=== PATIENT | male | born 1970 | race Caucasian/White ===

== ENCOUNTER 2023-11-23 15:45 | Inpatient (IN) | payer OTHER, MEDICAID ==
[~2023-11-23] VITALS: Ht 170.2 cm; Wt 89.2 kg
[2023-11-23] MEDS ORDERED: CARI350T PO (16:47)
[2023-11-23] MEDS ORDERED: CLOP75TA34 PO (16:47)
[2023-11-23 17:22] LABS: BASOPHILS % (AUTO) 0.3 % (0-1); EOSINOPHILS % (AUTO) 0.6 % (0-6); HEMOGLOBIN 15.4 g/dl (14.0-17.9); LYMPHOCYTES # (AUTO) 0.7 X10'3 (1.1-4.8); LYMPHOCYTES % (AUTO) 21.6 % (21-51); MEAN CORPUSCULAR HEMOGLOBIN 31.8 PG (27.0-31.0); MEAN CORPUSCULAR HGB CONC 32.7 g/dL (33.0-36.5); MEAN CORPUSCULAR VOLUME 97.1 FL (78-98); MEAN PLATELET VOLUME 7.6 FL (7.4-10.4); MONOCYTES # (AUTO) 0.3 X10'3 (0-0.9); MONOCYTES % (AUTO) 9.3 % (2-12); NEUTROPHILS # (AUTO) 2.3 X10'3 (1.8-7.7); NEUTROPHILS % (AUTO) 68.2 % (42-75); PLATELET COUNT 94 X10'3 (140-440); RED BLOOD COUNT 4.84 X10'6 (4.70-6.10); RED CELL DISTRIBUTION WIDTH 18.2 % (11.5-14.5); WHITE BLOOD COUNT 3.4 X10'3 (4.5-11.0)
[2023-11-23 17:36] LABS: ALBUMIN 3.9 G/DL (3.4-5.0); ANION GAP 11 (8-16); BLOOD UREA NITROGEN 21 MG/DL (7-18); BUN/CREATININE RATIO 20.8 (10.0-20.0); CALCIUM 9.1 MG/DL (8.5-10.1); CHLORIDE 107 MMOL/L (99-107); CREATININE 1.01 MG/DL (0.60-1.10); GLUCOSE 84 MG/DL (70-104); POTASSIUM 3.8 MMOL/L (3.5-5.1); SODIUM 141 MMOL/L (135-145); VALPROATE 110 UG/ML (50-100); eCRCL 80 ML/MIN; eGFR 78 ML/MIN
[2023-11-23 17:47] LABS: URINE AMPHETAMINE SCREEN NEGATIVE (Neg); URINE BARBITUATE SCREEN NEGATIVE (Neg); URINE BENZODIAZEPINES SCREEN NEGATIVE (Neg); URINE CANNABINOID SCREEN NEGATIVE (Neg); URINE COCAINE SCREEN NEGATIVE (Neg); URINE METHADONE SCREEN NEGATIVE (Neg); URINE OPIATE SCREEN NEGATIVE (Neg); URINE PHENCYCLIDINE SCREEN NEGATIVE (Neg)
[2023-11-23 17:48] LABS: ETHANOL < 10 MG/DL (<10)
[2023-11-23 17:54] LABS: BILIRUBIN,URINE NEGATIVE (Neg); CLARITY,URINE SLIGHTLY CLOUDY (Clear); COLOR,URINE YELLOW (Yellow); GLUCOSE, URINE NEGATIVE (Neg); KETONES,URINE 15 mg/dl (Neg); LEUKOCYTE ESTERASE ,URINE NEGATIVE (Neg); NITRITES, URINE NEGATIVE (Neg); OCCULT BLOOD,URINE NEGATIVE (Neg); PROTEIN,URINE NEGATIVE (Neg); UROBILINOGEN,URINE 0.2 E.U/dL (0.2-1.0)
[2023-11-23 18:12] LABS: UA COLLECTION TYPE NON-SPECIFIED
[2023-11-23 18:13] LABS: BACTERIA,URINE FEW /HPF (Neg); MUCUS STRANDS MODERATE /LPF (Neg); RBC,URINE 0-2 /HPF (0-2); SQUAMOUS EPITHELIAL CELL,UR FEW /LPF (FEW)
[2023-11-23] MEDS ORDERED: ROPI2TAB29 PO (18:21)
[2023-11-23] MEDS ORDERED: EZET10TA6 PO (18:21)
[2023-11-23] MEDS ORDERED: PANT40TA54 PO (18:21)
[2023-11-23] MEDS ORDERED: DIVA500T9 PO (18:21)
[2023-11-23] MEDS ORDERED: METH2.5T PO (18:21)
[2023-11-23] MEDS ORDERED: FLO0.4C PO (18:21)
[2023-11-23] MEDS ORDERED: OLAN5TAB5 PO ×2 (18:21)
[2023-11-23] MEDS ORDERED: MYCO250C46 PO (18:21)
[2023-11-23] MEDS ORDERED: PRAZ5CAP2 PO (18:21)
[2023-11-24] MEDS: methoTREXATE 2.5mg tablet PO SCH (00:15)
[2023-11-24] MEDS: LORazepam 1 MG tablet PO ONE ×2 (01:21→09:26)
[2023-11-24] MEDS: divalproex sod 250mg ER (24-hour) tablet PO SCH (08:00)
[2023-11-24] MEDS: ROPINIRole 0.25mg tablet PO SCH (09:26)
[2023-11-24] MEDS: acetaminophen 325mg tablet PO ONE (09:27)
[2023-11-24] MEDS: clopidogrel 75mg tablet PO SCH (09:27)
[2023-11-24] MEDS: mycophenolate mofetil 250mg capsule PO SCH (09:28)
[2023-11-24] MEDS: tamsulosin 0.4mg capsule PO SCH (09:29)
[2023-11-24] MEDS: OLANZapine 5mg rapidly disint. tablet PO SCH (23:31)
[2023-11-24] MEDS: prazosin 1mg capsule PO SCH (23:32)
[2023-11-25] MEDS: HYDROcodone/acetaminophen 5mg/325mg tablet PO PRN (12:55)
[2023-11-25] MEDS: traZODone 50mg tablet PO ONE (21:21)
[2023-11-25] MEDS: methoTREXATE 2.5mg tablet PO SCH (21:36)
[2023-11-26] MEDS: HYDROcodone/acetaminophen 5mg/325mg tablet PO PRN (14:12)
[2023-11-26] MEDS ORDERED: traZODone 50mg tablet PO SCH (20:00)
[2023-11-26] MEDS: traZODone 50mg tablet PO SCH (21:38)
[2023-11-27] MEDS: hydrOXYzine 25 MG tablet PO PRN (07:07)
[2023-11-28] MEDS: meclizine 12.5mg tablet PO ONE (08:07)
[2023-11-28] MEDS: ondansetron 4mg rapidly disintigrating tab PO ONE (08:07)
[2023-11-29] MEDS ORDERED: traZODone 50mg tablet PO ONE (01:00)
[2023-11-29] MEDS: prazosin 1mg capsule PO SCH (21:28)
[2023-11-30] MEDS: OLANZapine 5mg rapidly disint. tablet PO ONE (04:57)
[2023-11-30] MEDS: LORazepam 2 mg/ml vial IM ONE (13:06)
[2023-11-30] MEDS: diphenhydrAMINE 50 mg/ml inj IM ONE (13:06)
[2023-11-30] MEDS: haloperidol lactate 5mg/ml inj IM ONE (13:06)
[2023-11-30] MEDS: diphenhydrAMINE 25mg capsule PO ONE (22:17)
[2023-11-30] MEDS: LORazepam 1 MG tablet PO ONE (22:17)
[2023-11-30] MEDS: haloperidol 5mg tablet PO ONE (22:18)
[2023-11-30] MEDS: MIDAZolam 5mg/ml 2ml vial IM STA (23:30)
[2023-11-30] MEDS: haloperidol lactate 5mg/ml inj IM STA (23:31)
[2023-11-30] MEDS: MIDAZolam 5mg/ml 2ml vial IV STA (23:31)
[2023-12-01 07:49] LABS: BASOPHILS % (AUTO) 0.3 % (0-1); EOSINOPHILS % (AUTO) 0.4 % (0-6); HEMATOCRIT 44.9 % (42.0-52.0); HEMOGLOBIN 15.2 g/dl (14.0-17.9); LYMPHOCYTES # (AUTO) 0.9 X10'3 (1.1-4.8); LYMPHOCYTES % (AUTO) 16.3 % (21-51); MEAN CORPUSCULAR HEMOGLOBIN 32.4 PG (27.0-31.0); MEAN CORPUSCULAR HGB CONC 33.9 g/dL (33.0-36.5); MEAN CORPUSCULAR VOLUME 95.4 FL (78-98); MEAN PLATELET VOLUME 6.8 FL (7.4-10.4); MONOCYTES # (AUTO) 0.3 X10'3 (0-0.9); MONOCYTES % (AUTO) 5.9 % (2-12); NEUTROPHILS # (AUTO) 4.1 X10'3 (1.8-7.7); NEUTROPHILS % (AUTO) 77.1 % (42-75); PLATELET COUNT 73 X10'3 (140-440); RED BLOOD COUNT 4.71 X10'6 (4.70-6.10); WHITE BLOOD COUNT 5.3 X10'3 (4.5-11.0)
[2023-12-01 08:02] LABS: ALANINE AMINOTRANSFERASE 20 U/L (12-78); ALBUMIN/GLOBULIN RATIO 1.3 (1.1-1.5); ALKALINE PHOSPHATASE 47 IU/L (46-116); ANION GAP 12 (8-16); ASPARTATE AMINO TRANSFERASE 40 U/L (10-37); BILIRUBIN,TOTAL 0.5 MG/DL (0.1-1.0); BLOOD UREA NITROGEN 18 MG/DL (7-18); BUN/CREATININE RATIO 15.1 (10.0-20.0); CALCIUM 8.9 MG/DL (8.5-10.1); CHLORIDE 108 MMOL/L (99-107); CREATININE 1.19 MG/DL (0.60-1.10); GLUCOSE 78 MG/DL (70-104); POTASSIUM 3.8 MMOL/L (3.5-5.1); SODIUM 143 MMOL/L (135-145); TOTAL CARBON DIOXIDE 23.4 MMOL/L (24-32); eCRCL 68 ML/MIN; eGFR 64 ML/MIN
[2023-12-06] MEDS: ciprofloxacin 0.3% 2.5ml ophthalmic solution EACHEYE ONE (20:16)
[2023-12-06] MEDS: methoTREXATE 2.5mg tablet PO ONE ×2 (22:35→23:05)
[2023-12-07] MEDS: methoTREXATE 2.5mg tablet PO ONE (00:31)
[2023-12-08 12:29] VITALS: BP 120/87; PULSE 82; RESP 18; TEMP 97.7; O2SAT 98
[2023-12-08] MEDS: FLU VACC TS2024-25(6MOS UP)/PF 45 MCG/0.5 ML SYRINGE IMVAC ONE (13:20)
[2023-12-08] MEDS ORDERED: magnesium hydroxide 30ml (MOM) UD suspension PO PRN (16:55)
[2023-12-08] MEDS ORDERED: loperamide 2mg capsule PO PRN (16:55)
[2023-12-08] MEDS ORDERED: acetaminophen 325mg tablet PO PRN (16:55)
[2023-12-08] MEDS ORDERED: mag hydrox/Alum hydrox/simeth 30ml oral suspension PO PRN (16:55)
[2023-12-08 19:06] VITALS: RESP 20
[2023-12-08 20:00] VITALS: BP 125/75; PULSE 74; RESP 20; TEMP 97.6; O2SAT 97
[2023-12-08] MEDS: NYSTATIN 30 GM POWDER TP SCH (21:00)
[2023-12-09 07:00] VITALS: RESP 16; O2SAT 95
[2023-12-09 08:00] VITALS: BP 116/69; PULSE 77; RESP 16; TEMP 97.1; O2SAT 95
[2023-12-09 09:35] LABS: CHOL/HDL RATIO 4.9 (0.00-4.99); CHOLESTEROL 186 MG/DL (0-200); HDL CHOLESTEROL 38 MG/DL (35-60); LDL CHOLESTEROL 108 MG/DL (50-100); TRIGLYCERIDES 192 MG/DL (20-135)
[2023-12-09 09:38] LABS: HEMOGLOBIN A1C 4.9 % (4.5-6.2)
[2023-12-09 19:00] VITALS: RESP 12; O2SAT 93
[2023-12-09 20:00] VITALS: BP 92/75; PULSE 73; RESP 12; TEMP 98; O2SAT 93
[2023-12-09] MEDS: nystatin 15 GM powder TP SCH (21:00)
[2023-12-10 07:00] VITALS: RESP 20; O2SAT 97
[2023-12-10 08:00] VITALS: BP 108/73; PULSE 67; RESP 20; TEMP 98.2; O2SAT 97
[2023-12-10 13:35] VITALS: RESP 14; O2SAT 97
[2023-12-10 19:00] VITALS: RESP 20; O2SAT 96
[2023-12-10 20:00] VITALS: BP 120/75; PULSE 95; RESP 20; TEMP 97.7; O2SAT 96
[2023-12-11] MEDS: hydrOXYzine 25 MG tablet PO PRN (01:56)
[2023-12-11 07:00] VITALS: RESP 16; O2SAT 96
[2023-12-11 08:00] VITALS: BP 105/69; PULSE 66; RESP 16; TEMP 97.6; O2SAT 96
[2023-12-11 19:00] VITALS: RESP 16; O2SAT 95
[2023-12-11 20:00] VITALS: BP 126/77; PULSE 78; RESP 16; TEMP 98.2; O2SAT 95
[2023-12-12 07:00] VITALS: BP 100/53; PULSE 69; RESP 14; TEMP 97.9; O2SAT 96
[2023-12-12 19:00] VITALS: RESP 16; O2SAT 95
[2023-12-12 20:00] VITALS: BP 127/86; PULSE 91; RESP 16; TEMP 97.3; O2SAT 95
[2023-12-13 07:00] VITALS: BP 136/79; PULSE 75; RESP 18; TEMP 98.4; O2SAT 99
[2023-12-13] MEDS: acetaminophen 325mg tablet PO PRN (15:04)
[2023-12-13 19:00] VITALS: RESP 14; O2SAT 97
[2023-12-13 20:00] VITALS: BP 122/88; PULSE 78; RESP 14; TEMP 98.3; O2SAT 97
[2023-12-13] MEDS: methoTREXATE 2.5mg tablet PO ONE (23:36)
[2023-12-14 07:00] VITALS: RESP 14; O2SAT 95
[2023-12-14 09:00] VITALS: BP 100/61; PULSE 65; RESP 14; TEMP 97.8; O2SAT 95
[2023-12-14] MEDS: ondansetron 4mg rapidly disintigrating tab PO PRN (15:14)
[2023-12-14 19:00] VITALS: RESP 16; O2SAT 96
[2023-12-14 20:00] VITALS: BP 109/62; PULSE 68; RESP 16; TEMP 97.9; O2SAT 99
[2023-12-15 07:00] VITALS: BP 91/56; PULSE 59; RESP 18; TEMP 97.1; O2SAT 96
[2023-12-15 19:00] VITALS: RESP 16; O2SAT 95
[2023-12-15 20:00] VITALS: BP 105/60; PULSE 67; RESP 14; TEMP 98.2; O2SAT 95
[2023-12-16 07:04] VITALS: RESP 18; O2SAT 96
[2023-12-16 08:00] VITALS: BP 115/76; PULSE 67; RESP 12; TEMP 98; O2SAT 96
[2023-12-16] MEDS ORDERED: TRAZ-251 PO (11:42)
[2023-12-16] MEDS ORDERED: CLOP75TA34 PO (12:09)
[2023-12-16] MEDS ORDERED: DIVA-52 PO (12:09)
[2023-12-16] MEDS ORDERED: tamsulosin capsule PO (12:09)
[2023-12-16] MEDS ORDERED: ROPI0.5T37 PO (12:09)
[2023-12-16] MEDS ORDERED: MYCO500T5 PO (12:09)
[2023-12-16] MEDS ORDERED: OLAN5TAB29 PO (12:09)
[2023-12-16] MEDS ORDERED: PRAZ1CAP5 PO (12:09)
[2023-12-16] MEDS ORDERED: CARI-515 PO (12:09)
== END 2023-12-16 15:29 | disposition home or self-care (01) | DRG 885 ==
LOC: ER 15:47 → ED HOLD 12-08 10:45 → ADULT MH 12-08 12:13
PROVIDERS: ADMIT Psychiatry & Neurology Psychiatry; ATTEND Psychiatry & Neurology Psychiatry
DX: F33.3 Major depressive disorder, recurrent, severe with psychotic symptoms (principal); R45.851 Suicidal ideations; M33.20 Polymyositis, organ involvement unspecified; F41.9 Anxiety disorder, unspecified; I25.10 Atherosclerotic heart disease of native coronary artery without angina pectoris; K21.9 Gastro-esophageal reflux disease without esophagitis; G25.81 Restless legs syndrome; F43.10 Post-traumatic stress disorder, unspecified; G47.00 Insomnia, unspecified; N40.0 Benign prostatic hyperplasia without lower urinary tract symptoms; H54.8 Legal blindness, as defined in USA; B35.6 Tinea cruris; Z20.822 Contact with and (suspected) exposure to COVID-19; E78.00 Pure hypercholesterolemia, unspecified; Z79.01 Long term (current) use of anticoagulants; Z79.899 Other long term (current) drug therapy; I25.2 Old myocardial infarction; Z82.49 Family history of ischemic heart disease and other diseases of the circulatory system; Z88.8 Allergy status to other drugs, medicaments and biological substances
CPT/HCPCS: 36415; 80048; 80053; 80061; 80164; 80305; 80320; 81001; 82140; 83036; 85025; 85651; 87081; 87811; 90471; 90686; 96372; 97110; 97161; 97535; 99285; J7517; J8610; Q0177

== ENCOUNTER 2024-04-19 12:41 | Emergency (ER) | payer MEDICAID, MEDICARE ==
[~2024-04-19] VITALS: Ht 170.2 cm; Wt 78.8 kg
[~2024-04-19 12:41] MED LIST: CARI-515 PO; CLOP75TA34 PO; DIVA-52 PO; MYCO500T5 PO; OLAN5TAB29 PO; PRAZ1CAP5 PO; ROPI0.5T37 PO; TRAZ-251 PO; tamsulosin capsule PO
[2024-04-19 12:50] VITALS: TEMP 98.8
[2024-04-19] MEDS ORDERED: ALBU18HF2 INH (22:14)
[2024-04-19] MEDS ORDERED: BENZ-38 PO (22:14)
[2024-04-19 22:23] VITALS: BP 138/84; PULSE 81; RESP 17; O2SAT 96
== END 2024-04-19 22:25 | disposition home or self-care (01) ==
LOC: ER 12:42
DX: J06.9 Acute upper respiratory infection, unspecified (principal); Z79.899 Other long term (current) drug therapy; Z20.822 Contact with and (suspected) exposure to COVID-19
CPT/HCPCS: 36415; 71046; 87502; 87503; 87811; 99284

== ENCOUNTER 2024-04-26 10:34 | Outpatient (CLI) | payer MEDICARE ==
[~2024-04-26 10:34] MED LIST changes: +ALBU18HF2 INH; +BENZ-38 PO
== END 2024-04-26 23:59 | disposition home or self-care (01) ==
LOC: RAD 10:34
PROVIDERS: ATTEND Psychiatry & Neurology Psychiatry
DX: F25.9 Schizoaffective disorder, unspecified (principal); F32.A Depression, unspecified; F41.9 Anxiety disorder, unspecified
CPT/HCPCS: 36415; 80164

== ENCOUNTER 2024-10-31 09:29 | Outpatient (CLI) | payer MEDICARE, MEDICAID ==
[~2024-10-31 09:29] MED LIST changes: -BENZ-38 PO; +DIVA-112 PO; -DIVA-52 PO
[2024-10-31 10:13] LABS: MEAN PLATELET VOLUME 6.6 FL (7.4-10.4); RED CELL DISTRIBUTION WIDTH 15.6 % (11.5-14.5)
[2024-10-31 10:39] LABS: CHOL/HDL RATIO 5.2 (0.00-4.99); CREATININE 1.28 MG/DL (0.60-1.10); LDL CHOLESTEROL 138 MG/DL (50-100); TOTAL CARBON DIOXIDE 26.7 MMOL/L (24-32); eGFR 59 ML/MIN
[2024-11-01 09:26] LABS: HEP B CORE AB, TOT Negative (Negative); HEPATITIS C VIRUS ANTIBODY Reactive (Non Reactive); IMMUNOGLOBULIN G, QN, SERUM 806 mg/dL (603-1613)
[2024-11-01 11:27] LABS: ANTINUCLEAR ANTIBODIES Negative (Negative); VITAMIN D, 25-HYDROXY 20.2 ng/mL (30.0-100.0)
== END 2024-10-31 23:59 | disposition home or self-care (01) ==
LOC: LAB 09:29
PROVIDERS: ATTEND General Practice
DX: F32.A Depression, unspecified (principal); Z00.01 Encounter for general adult medical examination with abnormal findings; M33.20 Polymyositis, organ involvement unspecified; E78.49 Other hyperlipidemia; Z79.899 Other long term (current) drug therapy
CPT/HCPCS: 36415; 80053; 80061; 82306; 82784; 83036; 84439; 84443; 85025; 86038; 86235; 86704; 86706; 86803; 87522

== ENCOUNTER 2025-03-13 08:56 | Outpatient (CLI) | payer MEDICARE, MEDICAID ==
[2025-03-13 09:32] LABS: MEAN PLATELET VOLUME 6.3 FL (7.4-10.4); RED CELL DISTRIBUTION WIDTH 14.1 % (11.5-14.5)
[2025-03-13 09:33] LABS: LEUKOCYTE ESTERASE ,URINE NEGATIVE (Neg); NITRITES, URINE NEGATIVE (Neg); OCCULT BLOOD,URINE NEGATIVE (Neg)
[2025-03-13 09:43] LABS: UA COLLECTION TYPE NON-SPECIFIED
[2025-03-13 09:45] LABS: SQUAMOUS EPITHELIAL CELL,UR FEW /LPF (FEW)
[2025-03-13 09:46] LABS: COARSE GRANULAR CAST 0-3 /LPF (NEGATIVE)
[2025-03-13 10:08] LABS: CHOL/HDL RATIO 4.5 (0.00-4.99); CREATININE 1.48 MG/DL (0.60-1.10); LDL CHOLESTEROL 117 MG/DL (50-100); TOTAL CARBON DIOXIDE 30.1 MMOL/L (24-32); VALPROATE 108 UG/ML (50-100); eGFR 50 ML/MIN
== END 2025-03-13 23:59 | disposition home or self-care (01) ==
LOC: LAB 08:56
PROVIDERS: ATTEND Emergency Medicine Emergency Medical Services
DX: Z00.00 Encounter for general adult medical examination without abnormal findings (principal); E78.49 Other hyperlipidemia; F41.9 Anxiety disorder, unspecified; M33.20 Polymyositis, organ involvement unspecified; R73.03 Prediabetes; Z12.5 Encounter for screening for malignant neoplasm of prostate; Z13.1 Encounter for screening for diabetes mellitus; Z13.220 Encounter for screening for lipoid disorders; Z13.29 Encounter for screening for other suspected endocrine disorder
CPT/HCPCS: 36415; 80053; 80061; 80164; 81001; 82306; 83036; 84153; 84154; 84443; 85025; 87088